=== PATIENT | female | born 2005 | race African-American/Black ===

== ENCOUNTER 2024-09-19 10:52 | Emergency (ER) | payer SELFPAY ==
[2024-09-19] MEDS ORDERED: cefTRIAXone (ROCEPHIN) 500 MG VIAL ONE (11:27)
[2024-09-19] MEDS ORDERED: Sterile Water 10 ML ONE (11:27)
[2024-09-19 11:38] LABS: Pregnancy Test - Urine (BHCG) Negative (Negative); Pregu Control Background? CLEAR/WHITE (CLR/WHITE); Pregu Control Bar Appear? YES (CONTROL BAR); Specific Gravity 1.015 (1.002-1.036)
[2024-09-20 06:05] LABS: Chlamydia by PCR, Vaginal Swab Not Detected (NotDetected); GC by PCR, Vaginal Swab Not Detected (NotDetected)
== END 2024-09-19 13:11 | disposition home or self-care (01) ==
LOC: CSHERS 10:52
DX: N76.0 Acute vaginitis (principal); B37.31 Acute candidiasis of vulva and vagina
CPT/HCPCS: 81025; 87480; 87491; 87510; 87591; 87660; 96372; 99284; J0696